=== PATIENT | female | born 2000 | race Caucasian/White ===

== ENCOUNTER 2021-07-22 19:35 | Emergency (ER) | payer BC, MEDICAID ==
[2021-07-22] MEDS ORDERED: Aspirin 81 MG Tab.Chew PO ONE (19:52)
[2021-07-22] MEDS ORDERED: Sodium Chloride 0.9% 1,000 ML IV ONE (19:53)
[2021-07-22 20:53] LABS: BLOOD UREA NITROGEN,BUN 8 mg/dL (7.0-18.0); CARBON DIOXIDE,CO2 28.7 mmol/L (21.0-32.0); CHLORIDE,CL 99 mmol/L (98-107); GLUCOSE RANDOM 173 mg/dL (74-106); LIPASE 39 U/L (73-393); POTASSIUM,K 3.7 mmol/L (3.5-5.1); SODIUM,NA 136 mmol/L (136-145)
== END 2021-07-22 21:20 | disposition home or self-care (01) ==
LOC: MW.ED 19:35
DX: R07.89 Other chest pain (principal)
CPT/HCPCS: 36415; 71045; 80053; 83690; 84484; 84703; 85025; 85379; 93005; 99285; A9270; J7030

== ENCOUNTER 2023-02-10 06:05 | Emergency (ER) | payer MEDICAID ==
[2023-02-10] MEDS ORDERED: Fluconazole 150 MG Tab PO ONE (06:27)
[2023-02-10] MEDS ORDERED: Fluconazole 100 MG Tab PO ONE (06:36)
[2023-02-10] MEDS ORDERED: Fluconazole 100 MG Tab ONE (06:37)
== END 2023-02-10 06:44 | disposition home or self-care (01) ==
LOC: MW.ED 06:05
DX: B37.31 Acute candidiasis of vulva and vagina (principal)
CPT/HCPCS: 99283; A9270

== ENCOUNTER 2023-09-15 17:42 | Emergency (ER) | payer MEDICAID ==
[2023-09-15] MEDS: Albuterol/Ipratropium 3.0-0.5 MG/3 ML Neb Soln NEB STA (18:32)
[2023-09-15] MEDS: Sodium Chloride 0.9% 1,000 ML IV STA (18:32)
[2023-09-15] MEDS: Albuterol 0.083% 2.5 MG/3 ML Neb Soln NEB STA (18:32)
[2023-09-15] MEDS: Sodium Chloride 0.9% 10 ML Syringe FLUSH PRN (18:34)
[2023-09-15] MEDS: Sodium Chloride 0.9% 2.5 ML Syringe FLUSH PRN (18:34)
[2023-09-15] MEDS: Ketorolac 30 MG/ML SDV IVPUSH STA (18:35)
[2023-09-15 18:38] LABS: BASOPHILS ABSOLUTE AUTO 0.02 K/uL (0.00-0.20); BASOPHILS PERCENT AUTO 0.3 % (0.0-1.0); EOSINOPHILS ABSOLUTE AUTO 0.16 K/uL (0.00-0.45); HEMATOCRIT 44.3 % (37.0-47.0); HEMOGLOBIN 15.7 g/dL (12.0-16.0); IMMATURE GRAN ABSOLUTE AUTO 0.03 K/uL (0.00-0.05); IMMATURE GRAN PERCENT AUTO 0.4 % (0.0-0.4); LYMPHOCYTES ABSOLUTE AUTO 0.54 K/uL (1.00-4.80); LYMPHOCYTES PERCENT AUTO 6.8 % (24.0-44.0); MEAN CORPUSCULAR HEMOGLOBIN 29.6 pg (28.0-32.0); MEAN CORPUSCULAR HGB CONC 35.4 g/dL (32.0-36.0); MEAN CORPUSCULAR VOLUME 83.6 fL (83.0-99.0); MEAN PLATELET VOLUME 10.8 fL (9.4-12.3); MONOCYTES PERCENT AUTO 3.8 % (0.0-8.0); NEUTROPHILS ABSOLUTE AUTO 6.94 K/uL (1.80-7.70); NEUTROPHILS PERCENT AUTO 86.7 % (41.0-71.0); PLATELET COUNT,PLT 141 K/uL (150-400); WHITE BLOOD CELL COUNT,WBC 7.99 K/uL (3.9-11.3)
[2023-09-15] MEDS: Acetaminophen 500 MG Tab PO STA (18:44)
[2023-09-15 19:04] LABS: A/G RATIO 0.9 (0.9-1.6); ALANINE AMINOTRANSFERASE,ALT 27 IU/L (14-63); ALBUMIN 3.4 g/dL (3.4-5.0); ALKALINE PHOSPHATASE 71 U/L (46-116); ASPARTATE AMNIOTRANSFERASE,AST 19 IU/L (15-37); BILIRUBIN TOTAL 0.9 mg/dL (0.2-1.0); BLOOD UREA NITROGEN,BUN 11 mg/dL (7.0-18.0); CALCIUM 8.6 mg/dL (8.5-10.1); CARBON DIOXIDE,CO2 24.1 mmol/L (21.0-32.0); CHLORIDE,CL 98 mmol/L (98-107); CREATININE 0.7 mg/dL (0.6-1.0); EST CRCL DRUG DOSING (CG) 98.01 mL/min; GLUCOSE RANDOM 217 mg/dL (74-106); LIPASE 20 U/L (16-77); POTASSIUM,K 3.8 mmol/L (3.5-5.1); PROTEIN TOTAL,TP 7.1 g/dL (6.4-8.2); SODIUM,NA 136 mmol/L (136-145)
[2023-09-15 19:18] LABS: ESTIMATED GFR 124 mL/min (>60)
[2023-09-15 19:19] LABS: CORONAVIRUS COVID-19 NAA NEGATIVE (NEGATIVE); INFLUENZA A NAA NEGATIVE (NEGATIVE); INFLUENZA B NAA NEGATIVE (NEGATIVE)
[2023-09-15] MEDS: Iopamidol 755 Mg/ML 100 ML Bottle IVPUSH ONE (19:28)
[2023-09-15 19:37] LABS: APPEARANCE,URINE CLEAR; BILIRUBIN,URINE NEGATIVE (NEGATIVE); COLOR,URINE YELLOW; GLUCOSE,URINE 100 mg/dL (NEGATIVE); KETONES,URINE >=80 mg/dL (NEGATIVE); LEUKOCYTE ESTERASE,URINE NEGATIVE (NEGATIVE); NITRITE,URINE NEGATIVE (NEGATIVE); OCCULT BLOOD,URINE NEGATIVE (NEGATIVE); PH,URINE 7.5 (5.0-8.0); PROTEIN,URINE NEGATIVE (NEGATIVE); UROBILINOGEN,URINE 0.2 EU/dL (<2.0)
[2023-09-15 19:41] LABS: INR 0.97 (0.86-1.11)
== END 2023-09-15 21:25 | disposition home or self-care (01) ==
LOC: MW.ED 17:42
DX: R06.02 Shortness of breath (principal); Z75.8 Other problems related to medical facilities and other health care; Z79.899 Other long term (current) drug therapy
CPT/HCPCS: 0240U; 36415; 71275; 71275-26; 80053; 81003; 83690; 84484; 84703; 85025; 85610; 93005; 93010; 96360; 99284; 99285-25; A9270-GY; J3490; J7030; J7620-GY; Q9967

== ENCOUNTER 2024-07-08 09:26 | Emergency (ER) | payer MEDICAID | END 2024-07-08 11:15 | disposition home or self-care (01) | LOC: MW.ED 09:26 | DX: J18.9 Pneumonia, unspecified organism (principal); Z20.828 Contact with and (suspected) exposure to other viral communicable diseases; J45.909 Unspecified asthma, uncomplicated; Z75.8 Other problems related to medical facilities and other health care; Z79.899 Other long term (current) drug therapy | CPT/HCPCS: 71045; 71045-26; 99283 ==

== ENCOUNTER 2024-08-23 16:57 | Emergency (ER) | payer MEDICAID ==
[2024-08-23] MEDS: Alum Hydrox/Mag Hydrox/Simeth 15 ML, Lidocaine 2% 5 ML PO ONE (17:42)
[2024-08-23] MEDS: diphenhydrAMINE 12.5 MG/5 ML Liquid 5 ML UD Cup PO STA (17:42)
== END 2024-08-23 18:00 | disposition home or self-care (01) ==
LOC: MW.ED 16:57
DX: J02.9 Acute pharyngitis, unspecified (principal); J45.909 Unspecified asthma, uncomplicated; Z79.51 Long term (current) use of inhaled steroids; Z75.8 Other problems related to medical facilities and other health care
CPT/HCPCS: 99283; A9270